=== PATIENT | female | born 1995 | race Caucasian/White ===

== ENCOUNTER 2019-10-07 14:17 | Emergency (ER) | payer OTHER, SELFPAY ==
[2019-10-07 14:18] VITALS: BP 105/67; PULSE 104; RESP 20; TEMP 37.9; O2SAT 99; BMI 17.2
[2019-10-07 15:40] LABS: UTC Influenza A Antigen Negative (Negative); UTC Influenza B Antigen Negative (Negative)
--- NOTE | 2019-10-07 15:49 | HMH.EDUTC ---
[facility] – [place] Disposition Clinical Impression: Flu-like symptoms Disposition: Home, Self-Care Condition on Discharge: Good Instructions: How to Avoid a Cold or Flu, Influenza, DI for Influenza -- Adult, Oseltamivir Additional Instructions: ? Start Tamiflu today if you are going to take it. Discussed risk and possible benefits. ? Lots of rest ? Increase Fluids water, Gatorade, powerade, pedialyte,if /toddler/child ? Alternate Tylenol and / or ibuprofen as discussed for fever, aches, chills x 24 hours without medication for symptoms ? Follow up IMMEDIATELY with your family doctor for new or worsening Symptoms OR no noticeable improvement over the next 48-72 hours, 911 for difficulty or breathing ? You or your child area contagious until no fever, aches, chills for 24 hours with medication for symptoms *Monitor Temp, Over the counter Motrin or Tylenol as directed/as needed Tylenol every 4 hours and Motrin every 6 hours (as long as your family doctor has told you that you can take it) for fever or pain. and straight to ER if unable to lower temp less than 101.0 after medication given *Warm salt water gargles may help to soothe the throat *Throat Lozenges *Warm fluids *Sleep elevated *Humidifier/Vaporizer Your throat swab was sent for culture. Those results are typically sent to your primary care. Be sure to follow up in 2-3 days with your family doctor/primary care physician if no improvement so they can review those result and treat if necessary. If you don?t have a primary care doctor, I recommend you get one but in the mean time, you will have to return to a walk in clinic Follow up IMMEDIATELY for new or worsening symptoms or no Noticeable improvement over the next 48-72 hours. 911 for difficulty breathing or swallowing Prescriptions: Oseltamivir Phosphate [Tamiflu 75mg Capsule] 75 mg PO BID #10 cap Prescription Printed Referrals: Provider,Referral, [Primary Care Provider] - Forms: Work/School Release Medical Decision Making - Esequiel Inquiry Pt receiving controlled substance: No Esequiel was queried for this patient: No Vital Signs: 10/07/19 14:18 Temperature 100.3 F H Temperature Source Oral Pulse Rate [Radial] 104 H Respiratory Rate 20 Blood Pressure [Right Arm] 105/67 L Blood Pressure Mean [Right Arm] 79 Blood Pressure Source [Right Arm] Automatic Cuff Blood Pressure Position [Right Arm] Sitting 02 Sat by Pulse Oximetry 99 Oxygen Delivery Method Room Air - Lab Data Lab results reviewed: Yes: I reviewed the patient's lab results. Lab Results 10/07/19 15:15: Influenza Type A Ag Negative, Influenza Type B Ag Negative [facility] – [place] HPI - General Stated complaint: fever 101 Time Seen by Provider: 10/07/19 15:49 Mode of Arrival: Ambulatory Source of Information: Patient Limitations: No Limitations Description of Symptoms (Recalled from Triage Doc. by RN): FLU LIKE SYMPTOMS, FEVER HEENT Symptoms (Recalled from RN notes): Yes Resp Symptoms (Recalled from RN notes): Yes Skin Symptoms (Recalled from RN notes): No MS Symptoms (Recalled from RN notes): No Functional Status (Recalled from RN notes): WNL - History of Present Illness Provider Complaint: Patient states that she got the flu shot yesterday States that today she has been having fever on and off since yesterday of 101.0 States that today she has been having sore throat that has continued to get worse States that she feels achy all over and chills worse - Related Data Home Medications Medication Instructions Recorded Confirmed norgestimate 0.25 mg-ethinyl PO #84 tab 04/22/19 04/22/19 estradiol 35 mcg tablet Previous Rx's Medication Instructions Recorded Oseltamivir Phosphate [Tamiflu 75 mg PO BID #10 cap 10/07/19 75mg Capsule] Allergies Allergy/AdvReac Type Severity Reaction Status Date / Time No Known Allergies Allergy Unverified 04/22/19 15:48 - Worker's Comp Is this a Worker's Comp case?: No [facility]
[2019-10-07 16:05] VITALS: BP 105/67; PULSE 104; RESP 20; TEMP 37.9; O2SAT 99
== END 2019-10-07 16:06 | disposition home or self-care (01) ==
PROVIDERS: Emergency Provider Nurse Practitioner
DX: J11.1 Influenza due to unidentified influenza virus with other respiratory manifestations (principal)
CPT/HCPCS: 87804; 99201

== ENCOUNTER 2020-05-21 17:11 | Emergency (ER) | payer OTHER, SELFPAY ==
[2020-05-21 17:31] VITALS: BP 118/72; PULSE 80; RESP 16; TEMP 36.8; O2SAT 98; BMI 18.0
--- NOTE | 2020-05-21 17:38 | HMH.EDUTC ---
[facility] – [place] Disposition Clinical Impression: Exposure to COVID-19 virus Headache Qualifiers: Headache type: unspecified Headache chronicity pattern: unspecified pattern Intractability: not intractable Qualified Code(s): R51 - Headache Disposition: Home, Self-Care Condition on Discharge: Good Instructions: Preventing the Spread of Coronavirus Discharge Instructions Additional Instructions: Drink plenty of fluids. Take tylenol for pain or fever. Follow up with your regular doctor. GO TO THE ER FOR ANY WORSENING SYMPTOMS FOLLOW THE DIRECTIONS ON THE COVID-19 HAND OUT THAT WE GAVE YOU REGARDING SELF-ISOLATION UNTIL YOU KNOW YOUR COVID-19 RESULTS Referrals: PCP,No [Primary Care Provider] - Medical Decision Making - Medical Records Medical records reviewed: No: I reviewed the patient's medical records. - Esequiel Inquiry Pt receiving controlled substance: No Vital Signs: 05/21/20 17:31 05/21/20 17:40 Temperature 98.3 F 98.3 F Temperature Source Oral Pulse Rate 80 Pulse Rate [Right Brachial] 80 Respiratory Rate 16 16 Blood Pressure 118/72 Blood Pressure [Right Arm] 118/72 Blood Pressure Mean [Right Arm] 87 Blood Pressure Source [Right Arm] Automatic Cuff Blood Pressure Position [Right Arm] Sitting 02 Sat by Pulse Oximetry 98 Oxygen Delivery Method Room Air Orders (Tests/Meds): ORDERS Category Date Time Status Coronavirus 19 Swab (OUTPT) Routine Lab 05/21/20 17:30 Received [facility] [place] HPI - General Stated complaint: headache, covid test Time Seen by Provider: 05/21/20 17:40 Mode of Arrival: Ambulatory Source of Information: Patient Limitations: No Limitations Description of Symptoms (Recalled from Triage Doc. by RN): PATIENT C/O HEADACHE. EXPOSED TO COVID ON THURSDAY HEENT Symptoms (Recalled from RN notes): Yes Resp Symptoms (Recalled from RN notes): No Skin Symptoms (Recalled from RN notes): No MS Symptoms (Recalled from RN notes): No Functional Status (Recalled from RN notes): WNL - History of Present Illness Provider Complaint: She has been exposed to COVID-19 2 days ago. She denies any symptoms other than she has been having headache since yesterday. She denies any cough or congestion or other symptoms. - Related Data Home Medications Medication Instructions Recorded Confirmed norgestimate 0.25 mg-ethinyl PO #84 tab 04/22/19 11/01/19 estradiol 35 mcg tablet Previous Rx's Medication Instructions Recorded amoxicillin 500 mg capsule 500 mg PO Q12H 10 Days #20 cap 11/01/19 Allergies Allergy/AdvReac Type Severity Reaction Status Date / Time No Known Allergies Allergy Verified 11/01/19 16:29 - Worker's Comp Is this a Worker's Comp case?: No H History - Hepatitis A Screen Drug use history?: No High risk sexual behaviors?: No History of sexually transmitted infection?: No Currently employed?: No Childcare worker?: No Do you have indoor plumbing?: Yes Do you have electricity?: Yes Attestation statement:: This patient has been screened for Hepatitis A risk factors. I have reviewed the patient's past medical history: Yes Medical History: Denies:: Diabetes Mellitus Type 2, Hypertension Other Medical History: Reports: Other (SI joint dysfunction.) Other Surgeries: Yes: No Previous Surgery, Other - Social History Smoking Status: Never smoker Alcohol Intake: never Substance Use Type: denies use Occupational Status: other Housing: house Family Hx:: Diabetes ROS Obtained: Yes All systems reviewed & no additional complaints - Constitutional Constitutional: Denies chills, Denies fever(s) - Eyes Eyes: Denies blurry vision, Denies change in vision - ENT Ears, Nose, Mouth, and Throat: Denies sore throat Physical Exam - General General appearance: alert, in no apparent distress - Head Head exam: atraumatic, normocephalic, normal inspection - Eye Eye exam: Present: normal appearance, PERRL, EOMI - ENT ENT exam: Present
[2020-05-21 17:40] VITALS: BP 118/72; PULSE 80; RESP 16; TEMP 36.8; O2SAT 98
== END 2020-05-21 17:43 | disposition home or self-care (01) ==
PROVIDERS: Emergency Provider Nurse Practitioner Family
DX: Z20.828 Contact with and (suspected) exposure to other viral communicable diseases (principal); R51 Headache
CPT/HCPCS: 99201; U0003

== ENCOUNTER 2021-06-17 16:39 | Emergency (ER) | payer OTHER, SELFPAY ==
[2021-06-17 17:30] VITALS: BP 100/64; PULSE 89; RESP 18; TEMP 36.7; O2SAT 99; BMI 18.8
--- NOTE | 2021-06-17 18:18 | HMH.EDUTC ---
[facility] – [place] Disposition Clinical Impression: Viral syndrome Disposition: Home, Self-Care Condition on Discharge: Good Instructions: DI for Viral Syndrome, DI for COVID-19 (Suspected or Confirmed ), Preventing the Spread of Coronavirus Discharge Instructions Additional Instructions: *Monitor Temp, Over the counter Motrin or Tylenol as directed/as needed Tylenol every 4 hours and Motrin every 6 hours (as long as your family doctor has told you that you can take it) for fever or pain. and straight to ER if unable to lower temp less than 101.0 after medication given *Warm salt water gargles may help to soothe the throat *Throat Lozenges *Warm fluids like tea with honey may help to soothe the throat *Sleep elevated *Humidifier/Vaporizer Your throat swab was sent for culture. Those results are typically sent to your primary care. Be sure to follow up in 2-3 days with your family doctor/primary care physician if no improvement so they can review those result and treat if necessary. If you don?t have a primary care doctor, I recommend you get one but in the mean time, you will have to return to a walk in clinic Follow up IMMEDIATELY for new or worsening symptoms or no Noticeable improvement over the next 48-72 hours. 911 for difficulty breathing or swallowing You were tested for today for COVID19 your test result should be back in the next 24-48 hours, You was given instructions to [facility] for your results if you do not have internet access you may call the [facility] You was given a handout with instructions for Self Quarantine and Self isolation for while you wait on test results and what to do if they are positive If you are positive the Health Dept will be contacting you also Make sure to take your Vitamins Vit. C Vit D and Zinc if you can take them Referrals: Provider,Referral, [Primary Care Provider] - As needed Forms: Work/School Release Medical Decision Making - Esequiel Inquiry Pt receiving controlled substance: No Esequiel was queried for this patient: No Vital Signs: 06/17/21 17:30 Temperature 98.1 F Temperature Source Oral Pulse Rate [Right Brachial] 89 Respiratory Rate 18 Blood Pressure [Right Arm] 100/64 L Blood Pressure Mean [Right Arm] 76 Blood Pressure Source [Right Arm] Automatic Cuff Blood Pressure Position [Right Arm] Sitting 02 Sat by Pulse Oximetry 99 Oxygen Delivery Method Room Air - Lab Data Lab results reviewed: Yes: I reviewed the patient's lab results. [facility] [place] HPI - General Stated complaint: Sore throat,cough,BARROS,Congestion Time Seen by Provider: 06/17/21 18:18 Mode of Arrival: Ambulatory Source of Information: Patient Limitations: No Limitations Description of Symptoms (Recalled from Triage Doc. by RN): PATIENT C/O WEAKNESS AND HEADACHE. RECENTLY EXPOSED TO STREP HEENT Symptoms (Recalled from RN notes): Yes Resp Symptoms (Recalled from RN notes): No Skin Symptoms (Recalled from RN notes): No MS Symptoms (Recalled from RN notes): No Functional Status (Recalled from RN notes): WNL - History of Present Illness Provider Complaint: Patient states that she was recently around someone that had strep throat States that for the last couple of days she has been having body aches, chills, feeling tired and achy all over State that she is fully vacinated and unsure if she has been around anyone with COVID or not - Related Data Home Medications Medication Instructions Recorded Confirmed norgestimate 0.25 mg-ethinyl PO #84 tab 04/22/19 11/01/19 estradiol 35 mcg tablet Previous Rx's Medication Instructions Recorded amoxicillin 500 mg capsule 500 mg PO Q12H 10 Days #20 cap 11/01/19 Allergies Allergy/AdvReac Type Severity Reaction Status Date / Time No Known Allergies Allergy Verified 11/01/19 16:29 - Worker's Comp Is this a Worker's Comp case?: No [facility] History - Hepatitis A Screen Drug use history?: No High risk sexual behaviors?: No History of sexually t
[2021-06-17 18:21] VITALS: BP 100/64; PULSE 89; RESP 18; TEMP 36.7; O2SAT 99
[2021-06-17 22:29] LABS: UTC Strep Screen (Rapid) Negative (Negative)
== END 2021-06-17 18:29 | disposition home or self-care (01) ==
PROVIDERS: Emergency Provider Nurse Practitioner
DX: B34.9 Viral infection, unspecified (principal); Z20.822 Contact with and (suspected) exposure to COVID-19; R53.1 Weakness
CPT/HCPCS: 87880; 99203; G0463; U0003

== ENCOUNTER → 2021-06-27 13:22 | Outpatient (CLI) | payer OTHER, SELFPAY | PROVIDERS: Visit Provider Nurse Practitioner | DX: Z02.5 Encounter for examination for participation in sport (principal); Z11.1 Encounter for screening for respiratory tuberculosis | CPT/HCPCS: 86580 ==

== ENCOUNTER → 2021-07-12 13:59 | Outpatient (CLI) | payer OTHER, SELFPAY | PROVIDERS: Visit Provider Nurse Practitioner | DX: Z20.822 Contact with and (suspected) exposure to COVID-19 (principal) | CPT/HCPCS: C9803; U0003; U0005 ==

== ENCOUNTER 2021-09-10 09:54 | Emergency (ER) | payer OTHER, SELFPAY ==
[2021-09-10 10:22] VITALS: BP 109/65; PULSE 83; RESP 16; TEMP 36.8; O2SAT 100; BMI 18.0
[2021-09-10 10:54] LABS: UTC Strep Screen (Rapid) Negative (Negative)
--- NOTE | 2021-09-10 10:55 | HMH.EDUTC ---
[facility] [place] Disposition Clinical Impression: Viral syndrome Pharyngitis Qualifiers: Pharyngitis/tonsillitis etiology: other specified organisms Qualified Code(s): J02.8 - Acute pharyngitis due to other specified organisms Otitis media Qualifiers: Otitis media type: suppurative Chronicity: acute Laterality: bilateral Recurrence: non-recurrent Spontaneous tympanic membrane rupture: without spontaneous rupture Qualified Code(s): H66.003 - Acute suppurative otitis media without spontaneous rupture of ear drum, bilateral Disposition: Home, Self-Care Condition on Discharge: Good Instructions: Middle Ear Infection, DI for Pharyngitis/Tonsillopharyngitis -- Adult, DI for Viral Syndrome Additional Instructions: Drink plenty of fluids. Take tylenol or ibuprofen for pain or fever. Take the medications as directed. Follow up with your regular doctor. GO TO THE ER FOR ANY WORSENING SYMPTOMS Quarantine until you know the results of your covid-19 test. If it is positive, the health department should call you and give you further instructions about your length of Quarantine and other things. Notify your school or workplace of your results and follow their instructions regarding return to work/school. Prescriptions: Brompheniramine/Pseudoephed/Dm [Bromfed Dm Cough Syrup] 5 ml PO Q6HP PRN #240 ml PRN Reason: Cough Transmission Status: Received by [facility] # methylPREDNISolone [Medrol] 4 mg PO DIRECTED 6 Days #21 packet Transmission Status: Received by [facility] # Azithromycin [Z-Ananth 250mg Tab*] 250 mg PO UD DOSE PK #6 tab Transmission Status: Received by [facility] # Referrals: Provider,Referral, [Primary Care Provider] - Forms: Work/School Release Time of Disposition: 11:16 Medical Decision Making - Medical Records Medical records reviewed: No: I reviewed the patient's medical records. - Esequiel Inquiry Pt receiving controlled substance: No Vital Signs: 09/10/21 10:22 09/10/21 11:20 Temperature 98.2 F 98.2 F Temperature Source Oral Pulse Rate 83 Pulse Rate [Left] 83 Respiratory Rate 16 16 Blood Pressure 109/65 L Blood Pressure [Right Arm] 109/65 L Blood Pressure Mean [Right Arm] 79 02 Sat by Pulse Oximetry 100 - Lab Data Lab results reviewed: Yes: I reviewed the patient's lab results. Lab Results 09/10/21 10:25: Strep Scn Rapid Clinic Negative Orders (Tests/Meds): ORDERS Category Date Time Status Covid-19 Nasal PCR ([facility]) Routine Lab 09/10/21 11:29 Received Strep Screen Confirmation Stat Micro 09/10/21 10:25 Received [facility] UTC HPI - General Stated complaint: sore throat, weakness, BARROS Time Seen by Provider: 09/10/21 10:55 Mode of Arrival: Ambulatory Source of Information: Patient Limitations: No Limitations Description of Symptoms (Recalled from Triage Doc. by RN): pt c/o a sore throat and bilateral ear aches with the L being the worst. ongoing since 09/03 HEENT Symptoms (Recalled from RN notes): Yes (sore throat and bilateral ear aches) Resp Symptoms (Recalled from RN notes): No Skin Symptoms (Recalled from RN notes): No MS Symptoms (Recalled from RN notes): No Functional Status (Recalled from RN notes): wnl - History of Present Illness Provider Complaint: She c/o ear pain, sore throat and feeling bad for the past 4 days. She has had some body aches also. She has been fully vaccinated against covid-19. - Related Data Home Medications Medication Instructions Recorded Confirmed norgestimate 0.25 mg-ethinyl PO #84 tab 04/22/19 11/01/19 estradiol 35 mcg tablet Previous Rx's Medication Instructions Recorded amoxicillin 500 mg capsule 500 mg PO Q12H 10 Days #20 cap 11/01/19 Azithromycin [Z-Ananth 250mg Tab*] 250 mg PO UD DOSE PK #6 tab 09/10/21 Brompheniramine/Pseudoephed/Dm 5 ml PO Q6HP PRN #240 ml 09/10/21 [Bromfed Dm Cough Syrup] methylPREDNISolone [Medrol] 4 mg PO DIRECTED 6 Days #21 09/10/21 pac
[2021-09-10 11:20] VITALS: BP 109/65; PULSE 83; RESP 16; TEMP 36.8
== END 2021-09-10 11:37 | disposition home or self-care (01) ==
PROVIDERS: Emergency Provider Nurse Practitioner Family
DX: H66.003 Acute suppurative otitis media without spontaneous rupture of ear drum, bilateral (principal); J02.8 Acute pharyngitis due to other specified organisms; B34.9 Viral infection, unspecified; Z20.822 Contact with and (suspected) exposure to COVID-19
CPT/HCPCS: 87880; 99203; C9803; G0463; U0003; U0005

== ENCOUNTER 2021-11-03 12:51 | Emergency (ER) | payer OTHER, SELFPAY ==
[2021-11-03 14:23] VITALS: BP 127/73; PULSE 107; RESP 18; TEMP 37; O2SAT 99; BMI 18.8
--- NOTE | 2021-11-03 14:39 | HMH.EDUTC ---
[facility] – [place] Disposition Clinical Impression: Exposure to COVID-19 virus Disposition: Home, Self-Care Condition on Discharge: Good Instructions: DI for Viral Syndrome, DI for COVID-19 (Suspected or Confirmed ) Additional Instructions: *Monitor Temp, Over the counter Motrin or Tylenol as directed/as needed Tylenol every 4 hours and Motrin every 6 hours (as long as your family doctor has told you that you can take it) for fever or pain. and straight to ER if unable to lower temp less than 101.0 after medication given *Warm salt water gargles may help to soothe the throat *Throat Lozenges *Warm fluids like tea with honey may help to soothe the throat *Sleep elevated *Humidifier/Vaporizer Follow up IMMEDIATELY for new or worsening symptoms or no Noticeable improvement over the next 48-72 hours. 911 for difficulty breathing or swallowing You were tested for today for COVID19 your test result should be back in the next 24-48 hours, you may check your results on the [facility] Portal if you have trouble logging on you may call [facility] support for assistance You was given a handout with instructions for Self Quarantine and Self isolation for while you wait on test results and what to do if they are positive If you are positive the Health Dept will be contacting you also Make sure to take your Vitamins Vit. C Vit D and Zinc if you can take them Referrals: Provider,Referral, MD [Primary Care Provider] - As needed Time of Disposition: 14:40 Medical Decision Making - Esequiel Inquiry Pt receiving controlled substance: No Esequiel was queried for this patient: No Vital Signs: 11/03/21 14:23 Temperature 98.6 F Temperature Source Oral Pulse Rate [Left Radial] 107 H Respiratory Rate 18 Blood Pressure [Right Arm] 127/73 Blood Pressure Mean [Right Arm] 91 Blood Pressure Source [Right Arm] Automatic Cuff Blood Pressure Position [Right Arm] Sitting 02 Sat by Pulse Oximetry 99 Oxygen Delivery Method Room Air Orders (Tests/Meds): ORDERS Category Date Time Status Covid-19 Nasal PCR ([facility]) Routine Lab 11/03/21 14:28 Ordered [facility] [place] HPI - General Stated complaint: sore throat, h/a, congestion Time Seen by Provider: 11/03/21 14:39 Mode of Arrival: Ambulatory Source of Information: Patient Limitations: No Limitations Description of Symptoms (Recalled from Triage Doc. by RN): c/o sore throat, BARROS and congestion. has covid HEENT Symptoms (Recalled from RN notes): Yes Resp Symptoms (Recalled from RN notes): Yes (congestion) Skin Symptoms (Recalled from RN notes): No MS Symptoms (Recalled from RN notes): No Functional Status (Recalled from RN notes): na - History of Present Illness Provider Complaint: Patient states that recently tested positive for COVID now she is having symptoms too body aches chills and headache so she came in to get tested - Related Data Home Medications Medication Instructions Recorded Confirmed norgestimate 0.25 mg-ethinyl PO #84 tab 04/22/19 11/01/19 estradiol 35 mcg tablet Previous Rx's Medication Instructions Recorded amoxicillin 500 mg capsule 500 mg PO Q12H 10 Days #20 cap 11/01/19 Azithromycin [Z-Ananth 250mg Tab*] 250 mg PO UD DOSE PK #6 tab 09/10/21 Brompheniramine/Pseudoephed/Dm 5 ml PO Q6HP PRN #240 ml 09/10/21 [Bromfed Dm Cough Syrup] methylPREDNISolone [Medrol] 4 mg PO DIRECTED 6 Days #21 09/10/21 packet Allergies Allergy/AdvReac Type Severity Reaction Status Date / Time No Known Allergies Allergy Verified 07/15/21 10:04 - Worker's Comp Is this a Worker's Comp case?: No H History - Hepatitis A Screen Drug use history?: No High risk sexual behaviors?: No History of sexually transmitted infection?: No Currently employed?: No Childcare worker?: No Do you have indoor plumbing?: Yes Do you have electricity?: Yes Attestation statement:: This patient has been screened for Hepatitis A risk factors. I have reviewed the patient's past medic
[2021-11-03 14:45] VITALS: BP 127/73; PULSE 107; RESP 18; TEMP 37; O2SAT 99
== END 2021-11-03 14:46 | disposition home or self-care (01) ==
PROVIDERS: Emergency Provider Nurse Practitioner
DX: U07.1 COVID-19 (principal)
CPT/HCPCS: 99202; C9803; G0463; U0003; U0005

== ENCOUNTER 2022-01-21 09:05 | Emergency (ER) | payer OTHER, SELFPAY ==
[2022-01-21 09:20] VITALS: BP 102/69; PULSE 110; RESP 18; TEMP 36.8; O2SAT 98; BMI 18.5
--- NOTE | 2022-01-21 09:33 | HMH.EDUTC ---
[facility] [place]: Influenza A Disposition: Home, Self-Care Condition on Discharge: Good Instructions: Influenza, DI for Influenza -- Adult Additional Instructions: Drink plenty of fluids. Take tylenol or ibuprofen for pain or fever. Take the medications as directed. Follow up with your regular doctor. GO TO THE ER FOR ANY WORSENING SYMPTOMS Prescriptions: Promethazine/Dextromethorphan [Promethazine-Dm Syrup] 5 ml PO Q6HP PRN #240 ml PRN Reason: Cough Transmission Status: Received by [facility] #[id number] Ondansetron [Zofran 4mg ODT] 4 mg PO Q8HP PRN #20 tab PRN Reason: Nausea Transmission Status: Received by [facility] #[id number] Oseltamivir Phosphate [Tamiflu 75mg Capsule] 75 mg PO BID #10 cap Transmission Status: Received by [facility] #[id number] Referrals: Provider,Referral, MD [Primary Care Provider] - Forms: Work/School Release Time of Disposition: 10:12 Medical Decision Making - Medical Records Medical records reviewed: No: I reviewed the patient's medical records. - Esequiel Inquiry Pt receiving controlled substance: No Vital Signs: 01/21/22 09:20 01/21/22 10:01 Temperature 98.3 F 98.3 F Temperature Source Oral Pulse Rate 110 H Pulse Rate [Right Brachial] 110 H Respiratory Rate 18 18 Blood Pressure 102/69 L Blood Pressure [Right Arm] 102/69 L Blood Pressure Mean [Right Arm] 80 Blood Pressure Source [Right Arm] Automatic Cuff Blood Pressure Position [Right Arm] Sitting 02 Sat by Pulse Oximetry 98 Oxygen Delivery Method Room Air - Lab Data Lab results reviewed: Yes: I reviewed the patient's lab results. Lab Results 01/21/22 09:23: Influenza Type A Ag Positive A, Influenza Type B Ag Negative Orders (Tests/Meds): ED MEDICATIONS Discontinued Medications Generic Name Dose Route Start Last Admin Trade Name Freq PRN Reason Stop Dose Admin Ceftriaxone Sodium 1 gm 01/21/22 09:39 01/21/22 09:48 Ceftriaxone 1gm Vial IM 01/21/22 09:40 Not Given ONCE ONE Lidocaine HCl 0 ml 01/21/22 09:39 01/21/22 09:48 Lidocaine 1% 5ml Pf Vial IM 01/21/22 09:40 Not Given ONCE ONE Methylprednisolone Sodium Succinate 125 mg 01/21/22 09:39 01/21/22 09:48 Methylprednisolone Sod Succ 125mg Vial IM 01/21/22 09:40 Not Given ONCE ONE [facility] [place] - General Stated complaint: sore throat, cough, fatigue, bodyaches Time Seen by Provider: 01/21/22 09:33 - History of Present Illness Provider Complaint: She c/o sore throat, chills, body aches and fever for the past 1 day. - Related Data Home Medications Medication Instructions Recorded Confirmed norgestimate 0.25 mg-ethinyl 1 tab PO DAILY #84 tab 04/22/19 01/21/22 estradiol 35 mcg tablet Previous Rx's Medication Instructions Recorded Ondansetron [Zofran 4mg ODT] 4 mg PO Q8HP PRN #20 tab 01/21/22 Oseltamivir Phosphate [Tamiflu 75 mg PO BID #10 cap 01/21/22 75mg Capsule] Promethazine/Dextromethorphan 5 ml PO Q6HP PRN #240 ml 01/21/22 [Promethazine-Dm Syrup] Allergies Allergy/AdvReac Type Severity Reaction Status Date / Time No Known Allergies Allergy Verified 07/15/21 10:04 [facility] History - Hepatitis A Screen Attestation statement:: This patient has been screened for Hepatitis A risk factors. I have reviewed the patient's past medical history: Yes Medical History: Denies:: Diabetes Mellitus Type 2, Hypertension Other Medical History: Reports: Other (SI joint dysfunction.) Other Surgeries: Yes: No Previous Surgery, Other - Social History Smoking Status: Never smoker Alcohol Intake: never Substance Use Type: denies use Occupational Status: other Housing: house Family Hx:: Diabetes ROS Obtained: Yes All systems reviewed & no additional complaints - Constitutional Constitutional: Reports as per HPI - Eyes Eyes: Denies eye discharge - ENT Ears, Nose, Mouth, and Throat: Reports as per HPI
[2022-01-21 09:43] LABS: UTC Influenza A Antigen Positive (Negative)
[2022-01-21 09:44] LABS: UTC Influenza B Antigen Negative (Negative)
[2022-01-21 10:01] VITALS: BP 102/69; PULSE 110; RESP 18; TEMP 36.8; O2SAT 98
== END 2022-01-21 10:14 | disposition home or self-care (01) ==
PROVIDERS: Emergency Provider Nurse Practitioner Family
DX: J10.1 Influenza due to other identified influenza virus with other respiratory manifestations (principal); E11.9 Type 2 diabetes mellitus without complications; I10 Essential (primary) hypertension
CPT/HCPCS: 87804; 99212; G0463